=== PATIENT | male | born 1950 | race Caucasian/White ===

== ENCOUNTER → 2024-05-09 09:03 | Outpatient (CLI) | payer OTHER, SELFPAY ==
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
== END ==
DX: M25.572 Pain in left ankle and joints of left foot (principal)
CPT/HCPCS: 73610